=== PATIENT | female | born 1980 | race Caucasian/White ===

== ENCOUNTER → 2022-06-24 15:19 | Outpatient (BNVA) | payer OTHER, SELFPAY | PROVIDERS: Visit Provider Nurse Practitioner Family | DX: G47.19 Other hypersomnia (principal); R06.81 Apnea, not elsewhere classified; R06.83 Snoring; R53.83 Other fatigue | CPT/HCPCS: 99202 ==

== ENCOUNTER → 2022-07-26 12:53 | Outpatient (REF) | payer OTHER, SELFPAY | LOC: HO.SL 12:53 | PROVIDERS: PCP Internal Medicine; Visit Provider Nurse Practitioner Family | DX: G47.19 Other hypersomnia (principal); R06.81 Apnea, not elsewhere classified; R06.83 Snoring | CPT/HCPCS: 95806 ==

== ENCOUNTER → 2022-08-21 13:57 | Outpatient (BNVA) | payer OTHER, SELFPAY | PROVIDERS: PCP Internal Medicine; Visit Provider Nurse Practitioner Family | DX: R06.83 Snoring (principal); G47.19 Other hypersomnia | CPT/HCPCS: 99212 ==

== ENCOUNTER → 2022-10-23 09:29 | Outpatient (BNVA) | payer OTHER, SELFPAY | PROVIDERS: PCP Internal Medicine; Visit Provider Nurse Practitioner Family | DX: G47.19 Other hypersomnia (principal); R06.81 Apnea, not elsewhere classified; R06.83 Snoring | CPT/HCPCS: 99212 ==

== ENCOUNTER → 2022-11-25 07:35 | Outpatient (BNV) | payer OTHER, SELFPAY | PROVIDERS: PCP Internal Medicine; Visit Provider Psychiatry & Neurology Neurology | DX: G47.61 Periodic limb movement disorder (principal) | CPT/HCPCS: 95810 ==

== ENCOUNTER → 2022-11-25 20:30 | Outpatient (REF) | payer OTHER, SELFPAY | LOC: HO.SL 20:30 | PROVIDERS: PCP Internal Medicine; Visit Provider Nurse Practitioner Family | DX: G47.19 Other hypersomnia (principal); G47.61 Periodic limb movement disorder; R06.83 Snoring; R06.81 Apnea, not elsewhere classified | CPT/HCPCS: 95810 ==

== ENCOUNTER 2023-01-10 10:34 | Outpatient (AMB) | payer OTHER, SELFPAY ==
--- NOTE | 2023-01-10 10:38 | A.OFFVIS_ITS ---
Intake Vital Signs 01/10/23 10:41 Weight 165 lb 8 oz BP 118/80 Blood Pressure Location Lt brachial Position Sitting Intake Visit Reasons: 2m follow up GIDE[facility] - Conf' Intake Note: F/U Sleep study [employer]kinder[employer] Teacher Required: No Allergies codeine Allergy (Mild, Verified 01/10/23 10:38) Unknown HPI HPI Comments History of Present Illness Details 42 y/o female patient presents for follo w up of sleep study. The PSG sleep study result was significant for loud snoring and frequent periodic limb movement. Pt was evaluated by ENT and started spray to treat nasal congestion. Pt will be re-evaluate next month. Pt reports that her daytime sleepiness has improved after taking her topiramate 150 mg in the evening. She takes topiramate to treat binge eating. However, she still sleepy and having hard time to drive long distance. She is not passing out as before. Pt is also takes oxcarbazepine 300 qAM and 900 mb BID and Wellbutrin 75mg daily for mood disorder. She sees psychiatrist regularly. Pt's sleep schedule is from 10-11 pm to 5 :30 am, takes nap, 8:30 am-11 am and then 5-7 pm. She was on focalin, adderall but it made her sleepy and palpitation. [facility] Medical History Kidney stones Family History (Updated 01/10/23 @ 10:41 by Jade Amor CMA) Father Heart attack Sister No problems noted. Social History (Updated 01/10/23 @ 10:41 by Jade Amor CMA) Alcohol intake: never Patient Tobacco Use Status: Never used Tobacco Use of substances other than those prescribed or required for medical reasons: Yes Substance Use Type: Marijuana Review of Systems Const All systems reviewed & are unremarkable except as noted in HPI and below ENT Reports Normal hearing present Neuro Reports Normal hearing present Physical Exam Vital Signs: Last Vital Signs BP 118/80 01/10/23 10:41 Const General: cooperative Nutritional Appearance: overweight Orientation/consciousness: patient oriented x3 HEENT Throat: Yes other (mallampati grade 2) Neck Neck: Yes full ROM and Yes supple Resp Effort & Inspection: normal respiratory effort and able to speak in complete sentences Neuro General: patient oriented x3, gait normal, moves all extremities and no focal motor deficits Cranial nerves: Yes Bilaterally intact EOM present, Yes Normal facial strength present, Yes Midline tongue present, Yes Symmetric palate elevation present, Yes Normal hearing present, Yes Ability to bilaterally rotate head present and Yes Ability to bilaterally elevate shoulders present Cognition (Neuro): normal cognition Gait exam (Neuro): Normal gait present Motor exam (neuro): 5/5 motor strength present throughout and Pronator motor function not present Psych Appearance: grossly normal Mental Status: mental status grossly normal Affect: normal affect Attitude: cooperative Assessment & Plan Assessment & Plan (1) Excessive daytime sleepiness: Code(s): G47.19 - Other hypersomnia (2) Snoring: Code(s): R06.83 - Snoring Plan Advised patient continue to follow up with ENT for snoring and nasal congestion. Advised patient to consult with her psychiatrist to manage her medicaiton to prevent daytime sleepiness. Encouraged patient to increase daily exercise. Coding Level of Care Code Est Pt Level 3 (31525) Diagnoses Excessive daytime sleepiness G47.19 Snoring R06.83
[2023-01-10 10:41] VITALS: BP 118/80
== END 2023-01-10 11:20 | disposition home or self-care (01) ==
PROVIDERS: PCP Internal Medicine; Visit Provider Nurse Practitioner Family
DX: G47.19 Other hypersomnia (principal); R06.83 Snoring
CPT/HCPCS: 99213

== ENCOUNTER → 2023-01-10 10:34 | Outpatient (BNVA) | payer OTHER, SELFPAY | PROVIDERS: PCP Internal Medicine; Visit Provider Nurse Practitioner Family | DX: G47.19 Other hypersomnia (principal); R06.83 Snoring | CPT/HCPCS: 99212 ==

== ENCOUNTER 2023-07-25 19:57 | Outpatient (REF) | payer OTHER, SELFPAY ==
--- NOTE | ~2023-07-25 | MR_ITS ---
EXAMINATION: MR BRAIN WITHOUT CONTRAST CLINICAL INFORMATION: Seizure COMPARISON: None TECHNIQUE: Multiplanar multisequence MR imaging of the brain was obtained without intravenous contrast. FINDINGS: There is no acute infarct on diffusion-weighted imaging. There is no intracranial hemorrhage on iron-sensitive imaging. No extra-axial collection or mass effect/herniation. Focus of T2/FLAIR hyperintense signal in the right frontal deep white matter, of doubtful clinical significance. Otherwise normal parenchymal signal characteristics. The hippocampi are symmetric in size, contour, and signal intensity, demonstrating no convincing imaging evidence of mesial temporal sclerosis. The temporal horns appear symmetric. No hydrocephalus. The ventricles are normal in morphology and size. The major flow voids at the skull base are preserved. The midline structures are normal. The cerebellar tonsils are normally positioned. The craniocervical junction is normal. Marrow signal is within normal limits. The visualized soft tissues are without significant abnormality. No signal abnormality within the paranasal sinuses or within the mastoid air cells. MR/MR head/brain wo con IMPRESSION: Unremarkable noncontrast MRI of the brain. No epileptogenic lesion is identified.
== END 2023-07-25 19:58 | disposition home or self-care (01) ==
LOC: HO.MRI 19:57
PROVIDERS: PCP Internal Medicine; Visit Provider Psychiatry & Neurology Neurology
DX: R56.9 Unspecified convulsions (principal)
CPT/HCPCS: 70551

== ENCOUNTER 2024-01-21 10:21 | Outpatient (REF) | payer OTHER, SELFPAY ==
[2024-01-21 10:46] LABS: MANUAL DIFF FLAG NO
[2024-01-21 11:38] LABS: Basophils Percent Auto 0.5 % (0-2); Eosinophils Percent Auto 0.7 % (0-4); Hematocrit 41.2 % (37.0-47.0); Hemoglobin 13.8 g/dl (12.0-16.0); Imm Gran Abs Auto 0.04 X10*3/uL (0.00-0.03); Imm Gran Pct Auto 0.7 % (0.0-0.4); Lymphocytes Absolute Auto 1.7 X10*3/uL (1.2-4.9); Lymphocytes Percent Auto 29.2 % (20-40); Mean Corpuscular HGB Conc 33.5 g/dl (31.0-35.0); Mean Corpuscular Hemoglobin 32.4 pg (27.0-33.0); Mean Corpuscular Volume 96.7 fL (80.0-98.0); Mean Platelet Volume 7.9 fL (9.4-12.3); Monocytes Absolute Auto 0.6 X10*3/uL (0.1-1.2); Monocytes Percent Auto 9.8 % (2-11); Neutrophils Absolute Auto 3.4 x10*3/uL (2.0-8.3); Neutrophils Percent Auto 59.1 % (45-73); Platelet Count 345 X10*3/uL (160-400); Red Blood Count 4.26 X10*6/uL (4.20-5.50); Red Cell Distribution Width 11.9 % (11.0-16.0); White Blood Count 5.8 X10*3/uL (4.8-10.8)
[2024-01-21 12:34] LABS: Anion Gap 12 (12-20); Blood Urea Nitrogen 8 mg/dL (9-16); Calcium 9.3 mg/dL (8.4-10.2); Carbon Dioxide 27 mmol/L (22-29); Chloride 103 mmol/L (96-108); Estimated Glomerular Filt Rate > 60; Glucose Random 85 mg/dL (60-115); Potassium 3.6 mmol/L (3.3-5.1); Sodium 138 mmol/L (135-145)
[2024-01-21 12:45] LABS: Thyroid Stimulating Hormone 0.56 uIU/mL (0.32-4.0)
[2024-01-21 12:48] LABS: Vitamin B12 1028 pg/mL (200-900)
== END 2024-01-21 10:22 | disposition home or self-care (01) ==
LOC: HO.LAB 10:21
PROVIDERS: PCP Internal Medicine; Visit Provider Registered Nurse
DX: R41.3 Other amnesia (principal)
CPT/HCPCS: 36415; 80048; 82607; 82746; 84436; 84443; 85025